=== PATIENT | male | born 1955 | race Caucasian/White ===

== ENCOUNTER → 2016-08-10 | Outpatient (REF) | payer MEDICARE, OTHER ==
[~2016-08-10] MED LIST: /AMLO25TA PO; /ATOR40TA PO; /HCTZ25TA PO; /MUPI30CR EXT; /ONDA4TA SL; /PANT40TA PO; /TAMS4CA PO; /WARF4TA PO; ACET50TA PO; ALBU2TA NEB; BLISOIN5 TOP; CEPALOZ2 MT; ENAL10TA2 PO; FERR32TA PO; LEXA5SOL PO; LOPR50TA PO; METF500T PO; MYSO50TA PO; NAPR500T PO; OCEA0.65; PACE200T PO; PERC2.5T PO; REGL10TA6 PO; [UNRECOGNIZED DRUG - OTHER] TOP
== END ==
LOC: M SFHCPLAZ 08:17
PROVIDERS: ATTEND Family Medicine
DX: Z00.00 Encounter for general adult medical examination without abnormal findings (principal); R73.01 Impaired fasting glucose

== ENCOUNTER → 2016-12-08 | Outpatient (REF) | payer MEDICARE, OTHER ==
[2016-12-08 13:20] LABS: MEAN CORPUSCULAR HGB CONC 33.5 g/dl (32.0-36.5); MEAN CORPUSCULAR VOLUME 92.6 fl (80.0-96.0); RED CELL DISTRIBUTION WIDTH 13.3 % (11.5-14.5); WHITE BLOOD COUNT 8.5 K/mm3 (4.0-10.0)
[2016-12-08 13:53] LABS: ALBUMIN 3.8 GM/DL (3.2-5.2); ALBUMIN/GLOBULIN RATIO 0.9 (1.00-1.93); BILIRUBIN,TOTAL 0.4 MG/DL (0.2-1.0); CALCIUM LEVEL 9.5 MG/DL (8.8-10.2); CREATININE FOR GFR 1.42 MG/DL (0.70-1.30); POTASSIUM SERUM 4.4 MEQ/L (3.5-5.1)
== END ==
LOC: M SFHCADAM 10:58
PROVIDERS: ATTEND Family Medicine
DX: G47.30 Sleep apnea, unspecified (principal); E78.00 Pure hypercholesterolemia, unspecified; I12.9 Hypertensive chronic kidney disease with stage 1 through stage 4 chronic kidney disease, or unspecified chronic kidney disease; N18.3 Chronic kidney disease, stage 3 (moderate); E11.9 Type 2 diabetes mellitus without complications

== ENCOUNTER → 2017-03-09 | Outpatient (REF) | payer MEDICARE, OTHER | LOC: M SFHCADAM 08:48 | PROVIDERS: ATTEND Family Medicine | DX: E11.9 Type 2 diabetes mellitus without complications (principal) ==

== ENCOUNTER → 2017-04-12 | Outpatient (REF) | payer MEDICARE, OTHER | LOC: M LAB REF 13:12 | PROVIDERS: ATTEND Internal Medicine Nephrology | DX: N18.3 Chronic kidney disease, stage 3 (moderate) (principal); N39.0 Urinary tract infection, site not specified ==

== ENCOUNTER → 2017-07-09 | Outpatient (REF) | payer MEDICARE, OTHER ==
[2017-07-09 12:38] LABS: ALBUMIN 3.8 GM/DL (3.2-5.2); ALKALINE PHOSPHATASE 57 U/L (45-117); ALT/SGPT 30 U/L (12-78); ANION GAP 9 MEQ/L (8-16); AST/SGOT 22 U/L (7-37); BILIRUBIN,TOTAL 0.6 MG/DL (0.2-1.0); BLOOD UREA NITROGEN 19 MG/DL (7-18); CALCIUM LEVEL 9.3 MG/DL (8.8-10.2); CARBON DIOXIDE LEVEL 26 MEQ/L (21-32); CHLORIDE LEVEL 106 MEQ/L (98-107); CHOLESTEROL LEVEL 143 MG/DL (<200); CHOLESTEROL RISK RATIO 3.325 (<5); CREATININE FOR GFR 1.34 MG/DL (0.70-1.30); GLOMERULAR FILTRATION RATE 57.5 (>49); GLUCOSE, FASTING 157 MG/DL (70-100); HDL CHOLESTEROL 43 MG/DL (>40); LDL CHOLESTEROL 68.6 MG/DL (<100); NON-HDL-C 100 MG/DL; POTASSIUM SERUM 4.7 MEQ/L (3.5-5.1); SODIUM LEVEL 141 MEQ/L (136-145); TOTAL PROTEIN 7.6 GM/DL (6.4-8.2); TRIGLYCERIDES LEVEL 157 MG/DL (<150)
[2017-07-09 12:47] LABS: ESTIMATED AVERAGE GLUCOSE 157 MG/DL (60-110); HEMOGLOBIN A1c 7.1 %
== END ==
LOC: M SFHCADAM 08:35
DX: E11.620 Type 2 diabetes mellitus with diabetic dermatitis (principal); Z68.35 Body mass index [BMI] 35.0-35.9, adult
CPT/HCPCS: 80053

== ENCOUNTER → 2017-08-10 | Outpatient (REF) | payer MEDICARE, OTHER | LOC: M LAB REF 13:09 | DX: N39.0 Urinary tract infection, site not specified (principal) | CPT/HCPCS: 87186 ==

== ENCOUNTER → 2018-01-25 | Outpatient (REF) | payer MEDICARE, OTHER ==
[2018-01-25 14:27] LABS: ESTIMATED AVERAGE GLUCOSE 151 MG/DL (60-110); HEMOGLOBIN A1c 6.9 %
== END ==
LOC: M SFHCADAM 08:22
DX: E11.9 Type 2 diabetes mellitus without complications (principal)
CPT/HCPCS: 83036

== ENCOUNTER → 2018-01-31 | Outpatient (REF) | payer MEDICARE, OTHER | LOC: M SFHCPLAZ 12:07 | DX: E11.9 Type 2 diabetes mellitus without complications (principal); R82.90 Unspecified abnormal findings in urine; Z93.6 Other artificial openings of urinary tract status | CPT/HCPCS: 87088; 87186 ==

== ENCOUNTER → 2018-05-16 | Outpatient (REF) | payer MEDICARE, OTHER ==
[2018-05-16 14:59] LABS: HEMOGLOBIN A1c 7.8 %
== END ==
LOC: M SFHCPLAZ 08:42
PROVIDERS: ATTEND Family Medicine
DX: E11.9 Type 2 diabetes mellitus without complications (principal)

== ENCOUNTER → 2018-08-03 | Outpatient (CLI) | payer MEDICARE, OTHER ==
[2018-08-03 13:50] LABS: HEMOGLOBIN A1c 7.5 %
== END ==
LOC: M WUC 09:22
PROVIDERS: ATTEND Family Medicine
DX: E11.9 Type 2 diabetes mellitus without complications (principal)

== ENCOUNTER → 2018-10-11 | Outpatient (REF) | payer MEDICARE, OTHER ==
[~2018-10-11] MED LIST changes: -/AMLO25TA PO; -/ATOR40TA PO; -/HCTZ25TA PO; -/MUPI30CR EXT; -/ONDA4TA SL; -/PANT40TA PO; -/TAMS4CA PO; -/WARF4TA PO; -ACET50TA PO; +BACT2CRE14 EXT; +COUM1TAB14 PO; +DAKI1SOL TOP; +FLOM0.4C39 PO; +HYDR-3644 PO; +LIPI1TAB2 PO; +MAPA500T17 PO; +NORV2TAB PO; +ONDA-1 SL; +PROT1TAB2 PO; -[UNRECOGNIZED DRUG - OTHER] TOP
== END ==
LOC: M LAB REF 12:12
PROVIDERS: ATTEND Physician Assistant Medical
DX: N39.0 Urinary tract infection, site not specified (principal)

== ENCOUNTER → 2019-01-13 | Outpatient (REF) | payer MEDICARE, OTHER | LOC: M LAB REF 12:40 | PROVIDERS: ATTEND Nurse Practitioner Family | DX: N39.0 Urinary tract infection, site not specified (principal) ==

== ENCOUNTER → 2019-07-15 | Outpatient (REF) | payer MEDICARE, OTHER | LOC: M LAB REF 10:42 | PROVIDERS: ATTEND Physician Assistant | DX: N39.0 Urinary tract infection, site not specified (principal) ==

== ENCOUNTER → 2019-07-18 | Outpatient (REF) | payer MEDICARE, OTHER ==
[2019-07-18 16:39] LABS: HEMOGLOBIN A1c 7.4 %
== END ==
LOC: M SFHCADAM 10:06
PROVIDERS: ATTEND Family Medicine
DX: E11.9 Type 2 diabetes mellitus without complications (principal)

== ENCOUNTER → 2019-09-19 | Outpatient (CLI) | payer MEDICARE, OTHER ==
--- NOTE | 2019-09-25 09:56 | SLEEPCENT ---
DATE OF PROCEDURE: 09/19/2019 INTERPRETATION: Nocturnal polysomnography was performed for the titration of pressure therapy in this patient with obstructive sleep apnea syndrome. Apnea-hypopnea index of 57. For testing the patient was fit with a ResMed AirFit F20 full face mask of medium size, 13 cm of water pressure were applied to the circuit and the lights were extinguished. 8 hours of data were reviewed. There were 336 minutes of sleep identified. Sleep latency was prolonged at 79 minutes. REM latency was normal at 97minutes. Sleep architecture was fair with two REM cycles noted. Overall sleep efficiency was 71.9%. The patient's electrocardiogram showed sinus rhythm with an average heart rate of 63 beats per minute. EEG showed normal waveforms for awake and sleep. Respiratory events were best palliated with CPAP at a pressure of +14 and remaining measures of sleep physiology were normal. IMPRESSION: Obstructive sleep apnea syndrome (G47.33) RECOMMENDATIONS: Nightly use of pressure therapy 14 cm of water.
== END ==
LOC: M SLEEP 20:00
PROVIDERS: ATTEND Nurse Practitioner Family
DX: G47.33 Obstructive sleep apnea (adult) (pediatric) (principal)

== ENCOUNTER → 2019-12-05 | Outpatient (REF) | payer MEDICARE, OTHER ==
[2019-12-05 13:35] LABS: ALBUMIN 3.7 GM/DL (3.2-5.2); BILIRUBIN,TOTAL 0.3 MG/DL (0.2-1.0); CALCIUM LEVEL 9.3 MG/DL (8.8-10.2); CHOLESTEROL RISK RATIO 2.871 (<5); CREATININE FOR GFR 1.45 MG/DL (0.70-1.30); GLOMERULAR FILTRATION RATE 52.2 (>49); HEMATOCRIT 41.5 % (42.0-52.0); HEMOGLOBIN 13.1 g/dl (13.5-17.5); MEAN CORPUSCULAR HGB CONC 31.6 g/dl (32.0-36.5); MEAN CORPUSCULAR VOLUME 95.2 fl (80.0-96.0); PLATELET COUNT, AUTOMATED 226 10^3/uL (150-450); POTASSIUM SERUM 4.8 MEQ/L (3.5-5.1); RED BLOOD COUNT 4.36 10^6/uL (4.30-6.10); TOTAL PROTEIN 7.2 GM/DL (6.4-8.2); WHITE BLOOD COUNT 8.2 10^3/uL (4.0-10.0)
[2019-12-05 13:51] LABS: HEMOGLOBIN A1c 6.3 %
[2019-12-05 14:09] LABS: CREATININE, URINE 92.3 MG/DL; MALB URINE SIEMENS 24.6 MG/L; MAU/CREAT RATIO 26.6 MCG/MG (0.0-30.0)
== END ==
LOC: M SFHCADAM 08:17
PROVIDERS: ATTEND Family Medicine
DX: G47.30 Sleep apnea, unspecified (principal); E11.9 Type 2 diabetes mellitus without complications; E78.00 Pure hypercholesterolemia, unspecified; I10 Essential (primary) hypertension

== ENCOUNTER → 2020-03-29 | Outpatient (REF) | payer MEDICARE, OTHER ==
[2020-03-29 13:54] LABS: HEMATOCRIT 41.5 % (42.0-52.0); HEMOGLOBIN 12.8 g/dl (13.5-17.5); MEAN CORPUSCULAR HEMOGLOBIN 29.3 pg (27.0-33.0); MEAN CORPUSCULAR HGB CONC 30.8 g/dl (32.0-36.5); PLATELET COUNT, AUTOMATED 271 10^3/uL (150-450); RED BLOOD COUNT 4.37 10^6/uL (4.30-6.10); WHITE BLOOD COUNT 10.2 10^3/uL (4.0-10.0)
[2020-03-29 14:14] LABS: HEMOGLOBIN A1c 6.2 %
[2020-03-29 14:21] LABS: ALBUMIN 3.7 GM/DL (3.2-5.2); CALCIUM LEVEL 9.5 MG/DL (8.8-10.2); CREATININE FOR GFR 1.38 MG/DL (0.70-1.30); GLOMERULAR FILTRATION RATE 55.2 (>49); POTASSIUM SERUM 4.7 MEQ/L (3.5-5.1)
== END ==
LOC: M SFHCADAM 08:28
PROVIDERS: ATTEND Family Medicine
DX: N18.2 Chronic kidney disease, stage 2 (mild) (principal); E11.21 Type 2 diabetes mellitus with diabetic nephropathy; D63.1 Anemia in chronic kidney disease

== ENCOUNTER → 2020-04-08 | Outpatient (REF) | payer MEDICARE, OTHER | LOC: M LAB REF 16:25 | PROVIDERS: ATTEND Physician Assistant | DX: N39.0 Urinary tract infection, site not specified (principal) ==

== ENCOUNTER 2020-05-06 14:45 | Inpatient (IN) | payer MEDICARE, OTHER ==
[~2020-05-06] VITALS: Ht 188 cm; Wt 112.6 kg
[2020-05-06] MEDS ORDERED: PENT400T22 PO (15:01)
[2020-05-06] MEDS ORDERED: LATA0.0015 OU (15:01)
[2020-05-06] MEDS ORDERED: TRUL10IN PO (15:01)
[2020-05-06] MEDS ORDERED: XARE20TA PO (15:01)
[2020-05-06] MEDS ORDERED: LISI10TA4 PO (15:01)
[2020-05-06] MEDS ORDERED: ROSU40TA4 PO (15:01)
[2020-05-06] MEDS ORDERED: METF10004 PO (15:01)
--- NOTE | 2020-05-06 16:32 | REP ---
INDICATION: swelling right testicle COMPARISON: None. TECHNIQUE: Myles scale and color Doppler evaluation using linear and curved array transducer with color Doppler evaluation. FINDINGS: Color evaluation cannot exclude subtle asymmetric (right greater than left) vascular perfusion to the testicles. Right hemiscrotum demonstrates large complex septated collection and differential diagnosis includes hydrocele related to infectious/inflammatory process as well as a hematocele related to recent trauma. Right testicle and epididymis appear relatively normal and there is no evidence for torsion. The left testicle and epididymis appear normal and without torsion or hydrocele. Right testicle measures 4.2 x 2.8 x 2.3 cm. Left testicle measures 4.7 x 2.2 x 2.4 cm. IMPRESSION: 1. Complex septated right hydrocele versus hematocele. Subtle asymmetric perfusion to testicles (right greater than left) cannot be excluded and raises the possibility of underlying right testicular infectious/inflammatory process. <Electronically signed by Jatinder Bergeron > 05/06/20 [id number]
[2020-05-06] MEDS ORDERED: NS 1,000 ML IV ONE (18:15)
[2020-05-06] MEDS ORDERED: ACETAMINOPHEN 500 MG TAB PO ONE (18:15)
[2020-05-06 19:12] LABS: BASO % 0.2 % (0.0-1.0); EOS % 0.1 % (0.0-3.0); HEMATOCRIT 40.1 % (42.0-52.0); HEMOGLOBIN 12.6 g/dl (13.5-17.5); LYMPH # 2.8 10^3/uL (1.5-5.0); LYMPH % 18.5 % (24.0-44.0); MEAN CORPUSCULAR HEMOGLOBIN 28.8 pg (27.0-33.0); MEAN CORPUSCULAR HGB CONC 31.4 g/dl (32.0-36.5); MEAN CORPUSCULAR VOLUME 91.6 fl (80.0-96.0); MONO # 1.6 10^3/uL (0.0-0.8); MONO % 10.9 % (0.0-5.0); NEUTROPHILS # 10.5 10^3/uL (1.5-8.5); NEUTROPHILS % 69.8 % (36.0-66.0); PLATELET COUNT, AUTOMATED 267 10^3/uL (150-450); RED BLOOD COUNT 4.38 10^6/uL (4.30-6.10)
[2020-05-06 19:33] LABS: ALBUMIN 3.5 GM/DL (3.2-5.2); BILIRUBIN,DIRECT 0.1 MG/DL (0.0-0.2); BILIRUBIN,TOTAL 0.4 MG/DL (0.2-1.0); CALCIUM LEVEL 9.3 MG/DL (8.8-10.2); CREATININE FOR GFR 1.46 MG/DL (0.70-1.30); GLOMERULAR FILTRATION RATE 51.6 (>49); TOTAL PROTEIN 7.6 GM/DL (6.4-8.2)
[2020-05-06] MEDS ORDERED: PIPERACILLIN/TAZOBACTAM SOD 3.375 GM in D5W MINI-BAG PLUS 50 ML IV ONE (20:15)
--- NOTE | 2020-05-06 20:42 | REPVR ---
PROCEDURE INFORMATION: Exam: XR Pelvis Exam date and time: 05/06/2020 8:15 PM Age: 65 years old Clinical indication: Pain; Scrotal; Additional info: Include pelvic/scrotum per urology Dr. Woodall TECHNIQUE: Imaging protocol: XR pelvis. Views: 1 or 2 view. COMPARISON: Scrotal, US 05/06/2020 4:07:03 PM FINDINGS: Bones/joints: The iliac crests were not fully imaged. No fracture or dislocation is identified. The hip joint spaces are preserved. No diastasis of the sacroiliac joints or pubic symphysis is noted. Soft tissues: No soft tissue gas is identified in the scrotum or perineal region. Vasculature: There are atherosclerotic calcifications. Incidental note is made of small round calcifications in the pelvis, which are compatible with phleboliths. IMPRESSION: No soft tissue gas identified in the scrotum or perineal region. Electronically signed by: Scooby Ragland On 05/06/2020 20:43:02 PM
[2020-05-06] MEDS ORDERED: SODIUM CHLORIDE 0.9% 1000ML IV STA (20:48)
[2020-05-06] MEDS ORDERED: ESCI10TA2 PO (20:56)
[2020-05-06] MEDS ORDERED: METO1TAB32 PO (20:56)
[2020-05-06] MEDS ORDERED: AMLO1TAB24 PO (20:56)
[2020-05-06] MEDS ORDERED: ACET-683 PO (20:56)
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
[2020-05-06] MEDS ORDERED: DEXTROSE 50% 50 ML SYRINGE IV PRN (21:00)
[2020-05-06] MEDS ORDERED: MAALOX 30 ML SUSP *UDC PO PRN (21:00)
[2020-05-06] MEDS ORDERED: MOM 30ML SUSPENSION UDC PO PRN (21:00)
[2020-05-06] MEDS ORDERED: GLUCAGON INJ 1MG VIAL SC PRN (21:00)
[2020-05-06] MEDS ORDERED: GLUCOSE 4GM CHEW TABLET PO PRN (21:00)
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
[2020-05-06 21:29] LABS: PERCENT SATURATION 6.2 % (19.7-50.0)
[2020-05-06] MEDS ORDERED: VANCOMYCIN HCL 1,000 MG, VIAL MATE ADAPTER 1 EACH in D5W 250 ML IV SCH (21:30)
[2020-05-06 21:37] LABS: FOLATE 9.2 NG/ML (>5.4)
[2020-05-06 21:59] LABS: CHLAMYDIA DNA AMPLIFICATION NEGATIVE (NEGATIVE); GC DNA AMPLIFICATION NEGATIVE (NEGATIVE)
[2020-05-07] MEDS ORDERED: METOPROLOL SUCC *XL* 25MG TAB (TopROL *XL*) PO ONE
[2020-05-07] MEDS: HumaLOG INSULIN (NovoLOG) PER UNIT SC SCH ×3 (00:01→12:50)
[2020-05-07] MEDS ORDERED: VANCOMYCIN HCL 1,000 MG, VIAL MATE ADAPTER 1 EACH in D5W 250 ML IV ONE ×4 (01:00)
[2020-05-07] MEDS: ROSUVASTATIN 10 MG TAB (CRESTOR) PO SCH ×2 (01:30→22:48)
[2020-05-07] MEDS: PENTOXIFYLLINE 400 MG TAB PO SCH ×4 (01:58→22:48)
[2020-05-07] MEDS: LATANOPROST 0.005% OPHTH SOLN 2.5 ML OU SCH ×2 (01:58→22:49)
[2020-05-07] MEDS: PIPERACILLIN/TAZOBACTAM SOD 4.5 GM in D5W MINI-BAG PLUS 50 ML IV SCH ×4 (03:03→22:47)
[2020-05-07] MEDS: NS 1,000 ML IV SCH ×3 (05:52→20:42)
[2020-05-07 07:40] LABS: HEMATOCRIT 33.8 % (42.0-52.0); HEMOGLOBIN 10.9 g/dl (13.5-17.5); MEAN CORPUSCULAR HEMOGLOBIN 30.2 pg (27.0-33.0); MEAN CORPUSCULAR HGB CONC 32.2 g/dl (32.0-36.5); MEAN CORPUSCULAR VOLUME 93.6 fl (80.0-96.0); PLATELET COUNT, AUTOMATED 218 10^3/uL (150-450); RED BLOOD COUNT 3.61 10^6/uL (4.30-6.10); WHITE BLOOD COUNT 12.6 10^3/uL (4.0-10.0)
[2020-05-07 08:00] VITALS: BP 99/64
[2020-05-07 08:06] LABS: BLOOD UREA NITROGEN 14 MG/DL (7-18); CALCIUM LEVEL 7.9 MG/DL (8.8-10.2); CARBON DIOXIDE LEVEL 25 MEQ/L (21-32); CHLORIDE LEVEL 112 MEQ/L (98-107); GLOMERULAR FILTRATION RATE > 60.0 (>49); GLUCOSE, FASTING 108 MG/DL (70-100); POTASSIUM SERUM 4.2 MEQ/L (3.5-5.1); SODIUM LEVEL 142 MEQ/L (136-145)
[2020-05-07] MEDS: METOPROLOL SUCC *XL* 25MG TAB (TopROL *XL*) PO SCH ×3 (09:00→22:48)
[2020-05-07] MEDS: lisinopriL 10 MG TAB PO SCH (09:00)
[2020-05-07] MEDS: amLODIPine 5 MG TAB PO SCH (09:00)
[2020-05-07] MEDS: RIVAROXABAN 20 MG TAB (XARELTO) PO SCH (09:10)
[2020-05-07] MEDS: ESCITALOPRAM OXALATE 10 MG TAB (LEXAPRO) PO SCH (09:10)
[2020-05-07] MEDS ORDERED: VANCOMYCIN HCL 750 MG, VIAL MATE ADAPTER 1 EACH in D5W 250 ML IV SCH (10:00)
[2020-05-07] MEDS ORDERED: VANCOMYCIN HCL 500 MG in D5W MINI-BAG PLUS 100 ML IV SCH (11:00)
[2020-05-07 12:00] VITALS: BP 107/65
[2020-05-07] MEDS ORDERED: GLUCOSE 4GM CHEW TABLET PO PRN (13:45)
[2020-05-07] MEDS ORDERED: DEXTROSE 50% 50 ML SYRINGE IV PRN (13:45)
[2020-05-07 14:00] VITALS: BP 111/69
--- NOTE | 2020-05-07 14:14 | IPNPDOC ---
Text Note Date of Service The patient was seen on 05/07/20. NOTE SUBJECTIVE: -No scrotal pain this morning. Reports that the swelling has improved -Afebrile OBJECTIVE: VITAL SIGNS: Please see below. GEN:obese, NAD HEENT: NCAT, sclera anicteric, EOMI, MMM CVS: RRR, NMRG LUNGS: CTAB ABDOMEN: Obese, soft & not tender with palpation EXTREMITIES: NCAT : moderate scrotal edema, has penile swelling, erythematous that he reports to be much improved. Nontender NEURO: CN 3-12 are grossly intact, speech is not dysarthric PSYCH: AOX3 LABORATORY DATA: Reviewed. IMAGING: Scrotal ultrasound "IMPRESSION: 1. Complex septated right hydrocele versus hematocele. Subtle asymmetric perfusion to testicles (right greater than left) cannot be excluded and raises the possibility of underlying right testicular infectious/inflammatory process." X-ray of the pelvis "IMPRESSION: No soft tissue gas identified in the scrotum or perineal region." MICROBIOLOGY: Please see below. ASSESSMENT: Mr. Marino is a 65-year-old with a history of NIDDM, penile urethrostomy, CKD 3, Hypertension, obesity, dyslipidemia, paroxysmal atrial fibrillation and essential tremor who presented with complaints of scrotal after blunt testicular trauma with suspected hematocele vs. unlikely necrotizing infection. PLAN: 1. +SIRS c/f sepsis SIRS criteria: Temp >101 / HR >90 / WBC >12 lactic acid <2 -continue Zosyn/IV fluids/f/u blood cx, UCx -Acetaminophen PRN for fever 2. Hydrocele versus hematocele. Likely a source of infection if present. -continue zosyn, day 2 -urology consulted doubt necrotizing infection -DC vanc 3. Asymptomatic UTI. -On zosyn 4. Chronic Normocytic normochromic anemia: He has had a resection of an adenomatous colonic polyp in the past -Follow-up iron studies, B12, folate, stool occult -will consider outpatient GI referral 5. NIDDM -consistent carb diet diet -f/u accuchecks & A1C -hypoglycemia protocol -sliding scale insulin -hold oral anti-glycemics 6. CKD 3 -f/u daily BMP 7.Chronic hypertension -Lisinopril, metoprolol, amlodipine 8. Obesity - JAM on 14 cm H2O on CPAP 9. Paroxysmal atrial fibrillation -c/w Xarelto / metoprolol 10. DPL -c/w rosuvastatin 11. Class 1 Obesity BMI of 31.3, complicates care He has coexisting hypertension, diabetes and JAM -patient can f/u w his or her PCP for a photographic machine operator consult, to discuss staring Saxenda which is indicated in patients with a BMI >27 with co-existing DM, HTN or dyslipidemia as an adjunct to help with weight control DVT PROPHYLAXIS: on xarelto DISPOSITION: medsurg blunt testicular trauma with suspected hematocele in an anticoagulated patient. Doubt necrotizing infection; Recent Klebsiella UTI; Complicated history of massive, catastrophic genital infection. Febrile P: Observe on broad spectrum IV antibiotics pending culture results. I will d/w Dr. Esquivel in the am who is coming on for urology. VS,Bhavanae, I+O VS, Heribertobone, I+O Laboratory Tests 05/06/20 18:02 05/06/20 18:46 05/07/20 07:11 Vital Signs Date Time Temp Pulse Resp B/P (MAP) Pulse Ox O2 Delivery O2 Flow Rate FiO2 05/07/20 12:00 97.8 69 22 107/65 (79) 94 05/06/20 18:01 Room Air I&O- Last 24 Hours up to 6 AM 05/07/20 06:00 Intake Total 4230 ml Balance 4230 ml SUSANNAH PAUL MD May 07, 2020 14:14
[2020-05-07 22:00] VITALS: BP 137/70
[2020-05-08] MEDS: NS 1,000 ML IV SCH (01:58)
[2020-05-08] MEDS: PIPERACILLIN/TAZOBACTAM SOD 4.5 GM in D5W MINI-BAG PLUS 50 ML IV SCH ×2 (01:58→10:10)
[2020-05-08 06:00] VITALS: BP 121/69
[2020-05-08] MEDS: ACETAMINOPHEN TAB 650MG DOSE (2X325MG) PO PRN ×2 (06:42→19:50)
[2020-05-08] MEDS: ESCITALOPRAM OXALATE 10 MG TAB (LEXAPRO) PO SCH ×2 (09:00→10:12)
[2020-05-08] MEDS: PENTOXIFYLLINE 400 MG TAB PO SCH ×3 (10:11→19:49)
[2020-05-08] MEDS: lisinopriL 10 MG TAB PO SCH (10:11)
[2020-05-08] MEDS: amLODIPine 5 MG TAB PO SCH (10:12)
[2020-05-08] MEDS: RIVAROXABAN 20 MG TAB (XARELTO) PO SCH (10:12)
[2020-05-08] MEDS: METOPROLOL SUCC *XL* 25MG TAB (TopROL *XL*) PO SCH ×3 (10:13→19:50)
--- NOTE | 2020-05-08 13:39 | IPNPDOC ---
Text Note Date of Service The patient was seen on 05/08/20. NOTE SUBJECTIVE: -No acute events overnight -had low grade temp to 100.1 OBJECTIVE: VITAL SIGNS: Please see below. GEN:obese, NAD HEENT: NCAT, sclera anicteric, EOMI, MMM CVS: RRR, NMRG LUNGS: CTAB ABDOMEN: Obese, soft & not tender with palpation EXTREMITIES: NCAT : moderate scrotal edema, with stable penile swelling and erythema, non tender NEURO: CN 3-12 are grossly intact, speech is not dysarthric PSYCH: AOX3 LABORATORY DATA: Reviewed. Pending AM labs IMAGING: Scrotal ultrasound "IMPRESSION: 1. Complex septated right hydrocele versus hematocele. Subtle asymmetric perfusion to testicles (right greater than left) cannot be excluded and raises the possibility of underlying right testicular infectious/inflammatory process." X-ray of the pelvis "IMPRESSION: No soft tissue gas identified in the scrotum or perineal region." MICROBIOLOGY: Please see below. ASSESSMENT: Mr. Marino is a 65-year-old with a history of NIDDM, penile urethrostomy, CKD 3, Hypertension, obesity, dyslipidemia, paroxysmal atrial fibrillation and essential tremor who presented with complaints of scrotal after blunt testicular trauma with suspected hematocele vs. unlikely necrotizing infection. PLAN: 1. +SIRS c/f sepsis SIRS criteria: Temp >101 / HR >90 / WBC >12 lactic acid <2 -continue Zosyn -f/u blood cx, UCx -Acetaminophen PRN for fever -stop IVF 2. Hydrocele versus hematocele. Likely a source of infection if present. -continue zosyn, day 3 -urology consulted doubt necrotizing infection -negative GCCT -f/u UCx and BCx 3. UTI. -On zosyn, day 3 4. Chronic Normocytic normochromic anemia: He has had a resection of an adenomatous colonic polyp in the past -Follow-up iron studies, B12, folate, stool occult -will consider outpatient GI referral 5. NIDDM -consistent carb diet diet -f/u accuchecks & A1C -hypoglycemia protocol -sliding scale insulin -hold oral anti-glycemics 6. CKD 3 -f/u daily BMP 7.Chronic hypertension -Lisinopril, metoprolol, amlodipine 8. Obesity - JAM on 14 cm H2O on CPAP 9. Paroxysmal atrial fibrillation -c/w Xarelto / metoprolol 10. DPL -c/w rosuvastatin 11. Class 1 Obesity BMI of 31.3, complicates care He has coexisting hypertension, diabetes and JAM -patient can f/u w his or her PCP for a ethylene plant operator consult, to discuss staring Saxenda which is indicated in patients with a BMI >27 with co-existing DM, HTN or dyslipidemia as an adjunct to help with weight control DVT PROPHYLAXIS: on xarelto DISPOSITION: medsurg VS,Fishbone, I+O VS, Fishbone, I+O Vital Signs Date Time Temp Pulse Resp B/P (MAP) Pulse Ox O2 Delivery O2 Flow Rate FiO2 05/08/20 06:00 97.9 62 17 121/69 (86) 99 Room Air I&O- Last 24 Hours up to 6 AM 05/08/20 06:00 Intake Total 2340 ml Output Total 3000 ml Balance -660 ml SUSANNAH PAUL MD May 08, 2020 09:12
[2020-05-08 14:00] VITALS: BP 110/64
[2020-05-08 14:19] LABS: HEMATOCRIT 35.4 % (42.0-52.0); MEAN CORPUSCULAR HEMOGLOBIN 28.8 pg (27.0-33.0); MEAN CORPUSCULAR HGB CONC 31.1 g/dl (32.0-36.5); MEAN CORPUSCULAR VOLUME 92.7 fl (80.0-96.0); PLATELET COUNT, AUTOMATED 240 10^3/uL (150-450); RED BLOOD COUNT 3.82 10^6/uL (4.30-6.10); WHITE BLOOD COUNT 8.3 10^3/uL (4.0-10.0)
[2020-05-08 14:46] LABS: BLOOD UREA NITROGEN 10 MG/DL (7-18); CALCIUM LEVEL 8.7 MG/DL (8.8-10.2); CARBON DIOXIDE LEVEL 26 MEQ/L (21-32); CHLORIDE LEVEL 114 MEQ/L (98-107); CREATININE FOR GFR 1.12 MG/DL (0.70-1.30); GLOMERULAR FILTRATION RATE > 60.0 (>49); GLUCOSE, FASTING 143 MG/DL (70-100); SODIUM LEVEL 144 MEQ/L (136-145)
[2020-05-08] MEDS: CEPHALEXIN 500 MG CAP PO SCH ×2 (17:45→23:29)
[2020-05-08] MEDS: ROSUVASTATIN 10 MG TAB (CRESTOR) PO SCH (19:49)
[2020-05-08] MEDS: LATANOPROST 0.005% OPHTH SOLN 2.5 ML OU SCH (19:50)
[2020-05-08 22:00] VITALS: BP 119/72
[2020-05-09 02:00] VITALS: BP 122/68
[2020-05-09] MEDS: CEPHALEXIN 500 MG CAP PO SCH (05:53)
[2020-05-09 06:00] VITALS: BP 119/66
[2020-05-09 07:06] LABS: HEMATOCRIT 36.5 % (42.0-52.0); HEMOGLOBIN 11.2 g/dl (13.5-17.5); MEAN CORPUSCULAR HEMOGLOBIN 28.5 pg (27.0-33.0); MEAN CORPUSCULAR HGB CONC 30.7 g/dl (32.0-36.5); MEAN CORPUSCULAR VOLUME 92.9 fl (80.0-96.0); PLATELET COUNT, AUTOMATED 271 10^3/uL (150-450); RED BLOOD COUNT 3.93 10^6/uL (4.30-6.10); WHITE BLOOD COUNT 8.6 10^3/uL (4.0-10.0)
[2020-05-09 07:28] LABS: BLOOD UREA NITROGEN 12 MG/DL (7-18); CALCIUM LEVEL 8.9 MG/DL (8.8-10.2); CARBON DIOXIDE LEVEL 27 MEQ/L (21-32); CHLORIDE LEVEL 111 MEQ/L (98-107); CREATININE FOR GFR 1.14 MG/DL (0.70-1.30); GLOMERULAR FILTRATION RATE > 60.0 (>49); GLUCOSE, FASTING 112 MG/DL (70-100); SODIUM LEVEL 141 MEQ/L (136-145)
[2020-05-09] MEDS: RIVAROXABAN 20 MG TAB (XARELTO) PO SCH (08:39)
[2020-05-09] MEDS: PENTOXIFYLLINE 400 MG TAB PO SCH (08:39)
[2020-05-09] MEDS: amLODIPine 5 MG TAB PO SCH (08:40)
[2020-05-09] MEDS: METOPROLOL SUCC *XL* 25MG TAB (TopROL *XL*) PO SCH (08:42)
[2020-05-09 08:43] VITALS: BP 123/69
[2020-05-09] MEDS: ESCITALOPRAM OXALATE 10 MG TAB (LEXAPRO) PO SCH (08:43)
[2020-05-09] MEDS: lisinopriL 10 MG TAB PO SCH (08:43)
[2020-05-09] MEDS ORDERED: CEPH500C PO (08:44)
--- NOTE | 2020-05-09 11:37 | DS.PDOC ---
Discharge Summary General Date of Admission May 06, 2020 at 20:48 Date of Discharge 05/09/2020 Attending Physician: SUSANNAH PAUL MD Discharge Summary PROCEDURES PERFORMED DURING STAY: None ADMITTING DIAGNOSES: 1. UTI 2. 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 NIDDM CKD 3 Chronic hypertension Obesity JAM on 14 cm H2O Dyslipidemia Paroxysmal atrial fibrillation on Xarelto Essential tremor GERD Hernia repair Bilateral carpal tunnel surgery COMPLICATIONS/CHIEF COMPLAINT: Hematocele/Sepsis. HISTORY OF PRESENT ILLNESS: 65-year-old gentleman who presented with complaints of 3 days of scrotal and testicular pain that occurred after he slipped on ice while cleaning his car, fell into a splits position and struck his testicle on a tire. The last couple of days the pain and swelling became worse, therefore he decided to come to the hospital for evaluation. He reports having fevers but denies having any chills. Scrotal ultrasound identified a fluid collection that may be due to to a hydrocele or hematocele; he was evaluated by Dr. Woodall who recommended antibiotics. HOSPITAL COURSE: He met SIRS criteria in the ED and he was empirically started on antibiotics and UA was positive and UCx sent. He was seen by urology that recommended medical management with antibiotics and UCx eventually grew pansensitve E.coli and he was switched to keflex. He is now being disharged home to complete a 7d course of keflex with urology and PCP follow up. DISCHARGE MEDICATIONS: Please see below. ALLERGIES: Please see below. PHYSICAL EXAMINATION ON DISCHARGE: VITAL SIGNS: Please see below. GEN:obese, NAD HEENT: NCAT, sclera anicteric, EOMI, MMM CVS: RRR, NMRG LUNGS: CTAB ABDOMEN: Obese, soft & not tender with palpation EXTREMITIES: NCAT : much improved scrotal edema, without erythema, non tender NEURO: CN 3-12 are grossly intact, speech is not dysarthric PSYCH: AOX3 LABORATORY DATA: Reviewed. Pending AM labs IMAGING: Scrotal ultrasound "IMPRESSION: 1. Complex septated right hydrocele versus hematocele. Subtle asymmetric perfusion to testicles (right greater than left) cannot be excluded and raises the possibility of underlying right testicular infectious/inflammatory process." X-ray of the pelvis "IMPRESSION: No soft tissue gas identified in the scrotum or perineal region." PROGNOSIS: Good ACTIVITY: As tolerated. DIET: consistent carb DISCHARGE PLAN: Home with keflex, 7d course, urology and PCP follow up DISPOSITION: Home DISCHARGE INSTRUCTIONS: 1. Home with keflex, 7d course, urology and PCP follow up ITEMS TO FOLLOWUP ON ON OUTPATIENT: 1. UTI and hematocele resolution DISCHARGE CONDITION: Stable TIME SPENT ON DISCHARGE: 34 minutes. Vital Signs/I&Os Vital Signs Date Time Temp Pulse Resp B/P (MAP) Pulse Ox O2 Delivery O2 Flow Rate FiO2 05/09/20 06:00 98.0 58 18 119/66 (83) 98 Room Air I&O- Last 24 Hours up to 6 AM 05/09/20 06:00 Intake Total 2550 ml Output Total 3000 ml Balance -450 ml Laboratory Data Labs 24H Laboratory Tests 2 05/08/20 12:28: Bedside Glucose (Misc Panel) 97 05/08/20 14:00: Nucleated Red Blood Cells % (auto) 0.0, Anion Gap 4L, Glomerular Filtration Rate > 60.0, Calcium Level 8.7L 05/08/20 16:32: Bedside Glucose (Misc Panel) 146H 05/08/20 21:07: Bedside Glucose (Misc Panel) 172H 05/09/20 06:50: Nucleated Red Blood Cells % (auto) 0.0, Anion Gap 3L, Glomerular Filtration Rate > 60.0, Calcium Level 8.9 CBC/BMP Laboratory Tests 05/08/20 14:00 05/09/20 06:50 FSBS Laboratory Tests Test 05/08/20 12:28 05/08/20 16:32 05/08/20 21:07 Range/Units Bedside Glucose (Misc Panel) 97 146 172 80-115 MG/DL Microbiology Microbiology 05/06/20 Urine Culture - Final, Complete Escherichia Coli 05/06/20 Blood Culture - Preliminary, Resulted No Growth after 48 hours. All Specime... 05/06/20 Blood Culture - Preliminary, Resulted No Growth after 48 hours. All Specime... Discharge Medications Scheduled Amlodipine Besylate (Amlodipine Besylate) 5 Mg Tablet, 5 MG PO DAILY, (Reported) Cephalexin (Cephalexin) 500 Mg Capsule, 500 MG PO Q6H Dulaglutide (Trulicity) 0.75 Mg/0.5 Ml Pen.injctr, 0.75 MG PO 1XWK, (Reported) ON TUESDAYS Escitalopram Oxalate (Escitalopram Oxalate) 10 Mg Tablet, 10 MG PO DAILY, (Reported) Latanoprost/Pf (Latanoprost 0.005% Eye Drop) 7.5 Ml Drops, 1 DROP OU QHS, (Reported) Lisinopril (Lisinopril) 10 Mg Tablet, 10 MG PO DAILY, (Reported) Metformin HCl (Metformin HCl) 1,000 Mg Tablet, 1,000 MG PO BID, (Reported) Metoprolol Succinate (Metoprolol Succinate) 25 Mg Tab.er.24h, 25 MG PO TID, (Reported) Pentoxifylline (Pentoxifylline) 400 Mg Tablet.er, 400 MG PO TID, (Reported) Rivaroxaban (Xarelto) 20 Mg Tablet, 20 MG PO DAILY, (Reported) Rosuvastatin Calcium (Rosuvastatin Calcium) 40 Mg Tablet, 40 MG PO QHS, (Reported) Scheduled PRN Acetaminophen (Acetaminophen) 500 Mg Tablet, 1,000 MG PO Q8H PRN for PAIN / FEVER, (Reported) Allergies Coded Allergies: No Known Allergies (Unverified , 05/06/20) SUSANNAH PAUL MD May 09, 2020 08:42
== END 2020-05-09 11:50 | disposition home or self-care (01) | DRG 872 ==
LOC: M ED 14:45 → M ED INP 20:48 → M MS5PR 05-07 13:15
PROVIDERS: ADMIT Internal Medicine; ATTEND Internal Medicine
DX: A41.9 Sepsis, unspecified organism (principal); N39.0 Urinary tract infection, site not specified; E11.22 Type 2 diabetes mellitus with diabetic chronic kidney disease; N18.30 Chronic kidney disease, stage 3 unspecified; I12.9 Hypertensive chronic kidney disease with stage 1 through stage 4 chronic kidney disease, or unspecified chronic kidney disease; E66.9 Obesity, unspecified; G47.33 Obstructive sleep apnea (adult) (pediatric); E78.5 Hyperlipidemia, unspecified; I48.0 Paroxysmal atrial fibrillation; G25.0 Essential tremor; N50.1 Vascular disorders of male genital organs; S30.22XA Contusion of scrotum and testes, initial encounter; K21.9 Gastro-esophageal reflux disease without esophagitis; D64.9 Anemia, unspecified; Z68.31 Body mass index [BMI] 31.0-31.9, adult; Z87.891 Personal history of nicotine dependence; Z93.6 Other artificial openings of urinary tract status; Z90.79 Acquired absence of other genital organ(s); Z79.1 Long term (current) use of non-steroidal anti-inflammatories (NSAID); Z79.84 Long term (current) use of oral hypoglycemic drugs; Z20.828 Contact with and (suspected) exposure to other viral communicable diseases; B96.20 Unspecified Escherichia coli [E. coli] as the cause of diseases classified elsewhere; W00.0XXA Fall on same level due to ice and snow, initial encounter; Y93.89 Activity, other specified; Y92.008 Other place in unspecified non-institutional (private) residence as the place of occurrence of the external cause

== ENCOUNTER → 2020-06-11 | Outpatient (REF) | payer MEDICARE, OTHER ==
[~2020-06-11] MED LIST changes: +ACET-683 PO; +AMLO1TAB24 PO; +CEPH500C PO; +ESCI10TA16 PO; +LATA0.0015 OU; +LISI10TA4 PO; +METF10004 PO; +METO1TAB32 PO; +PENT400T22 PO; +ROSU40TA4 PO; +TRUL10IN PO; +XARE20TA PO
== END ==
LOC: M SMT 11:53
PROVIDERS: ATTEND Urology
DX: N45.1 Epididymitis (principal)
CPT/HCPCS: 87086; G0463

== ENCOUNTER → 2020-06-13 | Outpatient (CLI) | payer MEDICARE, OTHER ==
--- NOTE | 2020-06-13 12:24 | REP ---
INDICATION: EPIDIDYMITIS. Patient reports left testicular pain today. COMPARISON: Comparison study May 06, 2020.. TECHNIQUE: High-resolution bilateral scrotal sonography. FINDINGS: On today's study, there is a septated complex hydrocele on the left side and the previously noted right-sided septated hydrocele is no longer apparent. There is no evidence of intratesticular mass on either side. Right testis measures 4.0 x 1.8 x 2.6 cm. Left testicular dimensions are 3.8 x 2.3 x 2.7 cm. Doppler flow is preserved to both testes. Resistive indices are 0.52 on the left and 0.63 on the right. There is hyperemia of the left testis and left epididymis consistent with epididymal orchitis. IMPRESSION: Left testicular and left epididymal hyperemia relative to the right. Complex hydrocele with septations has now developed on the left. Previously noted right-sided hydrocele is resolved. Left-sided epididymal orchitis suspected. <Electronically signed by Juan Miguel Oropeza > 06/13/20 [id number]
== END ==
LOC: M RAD 10:44
PROVIDERS: ATTEND Urology
DX: N45.1 Epididymitis (principal); N40.2 Nodular prostate without lower urinary tract symptoms
CPT/HCPCS: 36415; 76870; 93976; G0103

== ENCOUNTER → 2020-11-04 | Outpatient (CLI) | payer MEDICARE, OTHER ==
[~2020-11-04] MED LIST changes: +LISI10TA22 PO; -LISI10TA4 PO
--- NOTE | 2020-11-04 16:56 | REP ---
INDICATION: EPIDIDYMITIS. COMPARISON: 06/13/2020. TECHNIQUE: Real-time sonographic evaluation of scrotum and contents performed. FINDINGS: The testicles are normal in size and echotexture, right testicle measuring 2.6 x 2.3 x 2.6 cm and left testicle 3.6 x 1.9 x 1.9 cm. There is no testicular mass or torsion. Blood flow seen in each testicle with duplex Doppler evaluation. Complex fluid with debris and internal septations is noted around the right testicle. This is moderate in size. Previously noted left hydrocele has resolved. IMPRESSION: No testicular mass or torsion. Moderate complex right hydrocele. Resolution of left hydrocele. <Electronically signed by Demetrio Myles > 11/04/20 [id number]
== END ==
LOC: M RAD 15:43
PROVIDERS: ATTEND Specialist
DX: N43.3 Hydrocele, unspecified (principal); N45.1 Epididymitis

== ENCOUNTER → 2020-11-12 | Outpatient (CLI) | payer MEDICARE, OTHER ==
[2020-11-12 11:01] LABS: HEMOGLOBIN A1c 6.5 %
[2020-11-12 11:17] LABS: ALBUMIN 3.7 GM/DL (3.2-5.2); ALT/SGPT 18 U/L (12-78); BILIRUBIN,TOTAL 0.4 MG/DL (0.2-1.0); BLOOD UREA NITROGEN 24 MG/DL (7-18); CALCIUM LEVEL 8.8 MG/DL (8.8-10.2); CARBON DIOXIDE LEVEL 26 MEQ/L (21-32); CHLORIDE LEVEL 106 MEQ/L (98-107); CHOLESTEROL LEVEL 107 MG/DL (<200); CHOLESTEROL RISK RATIO 2.431 (<5); CREATININE FOR GFR 1.27 MG/DL (0.70-1.30); GLOMERULAR FILTRATION RATE > 60.0 (>49); GLUCOSE, FASTING 129 MG/DL (70-100); HDL CHOLESTEROL 44 MG/DL (>40); LDL CHOLESTEROL 47 MG/DL (<100); NON-HDL-C 63 MG/DL; SODIUM LEVEL 137 MEQ/L (136-145); TOTAL PROTEIN 7.1 GM/DL (6.4-8.2); TRIGLYCERIDES LEVEL 82 MG/DL (<150)
[2020-11-12 11:20] LABS: CREATININE, URINE 72.5 MG/DL; MALB URINE SIEMENS 27.3 MG/L; MAU/CREAT RATIO 37.6 MCG/MG (0.0-30.0)
== END ==
LOC: M PLALAB 07:46
PROVIDERS: ATTEND Family Medicine
DX: E11.21 Type 2 diabetes mellitus with diabetic nephropathy (principal); N18.31 Chronic kidney disease, stage 3a; I12.9 Hypertensive chronic kidney disease with stage 1 through stage 4 chronic kidney disease, or unspecified chronic kidney disease; E78.00 Pure hypercholesterolemia, unspecified

== ENCOUNTER → 2020-11-23 | Outpatient (CLI) | payer MEDICARE, OTHER | LOC: M LABSMTC 10:36 | PROVIDERS: ATTEND Anesthesiology | DX: Z01.812 Encounter for preprocedural laboratory examination (principal) ==

== ENCOUNTER 2020-11-28 10:41 | Day surgery (SDC) | payer MEDICARE, OTHER ==
[~2020-11-28] VITALS: Ht 188 cm; Wt 111.6 kg
[~2020-11-28 10:41] MED LIST changes: +NS 1,000 ML IV ONE
[2020-11-28] MEDS ORDERED: propofoL 200 MG/20 ML VIAL As Ordered ONE (11:51)
[2020-11-28] MEDS ORDERED: LIDOCAINE 2% 100MG/5ML SDV (FOR ANES.) As Ordered ONE (11:51)
--- NOTE | 2020-11-28 12:32 | ROOR ---
Patient Name: Nakul Marino Procedure Date: 11/28/2020 11:58 AM Date of : 1955 Age: 65 Room: [facility] Gender: Male Note Status: Finalized Procedure: Colonoscopy Indications: High risk colon cancer surveillance: Personal history of colonic polyps Providers: Ruddy Kincaid Jr, MD Referring MD: YENI HDZ MD Requesting Provider: Medicines: Propofol per Anesthesia Complications: No immediate complications. Procedure: Pre-Anesthesia Assessment: - Prior to the procedure, a History and Physical was performed, and patient medications and allergies were reviewed. The patient is competent. The risks and benefits of the procedure and the sedation options and risks were discussed with the patient. All questions were answered and informed consent was obtained. Patient identification and proposed procedure were verified by the physician and the nurse in the pre-procedure area and in the procedure room. Mental Status Examination: alert and oriented. Airway Examination: normal oropharyngeal airway and neck mobility. Respiratory Examination: clear to auscultation. CV Examination: normal. ASA Grade Assessment: II - A patient with mild systemic disease. After reviewing the risks and benefits, the patient was deemed in satisfactory condition to undergo the procedure. The anesthesia plan was to use moderate sedation / analgesia (conscious sedation). Immediately prior to administration of medications, the patient was re-assessed for adequacy to receive sedatives. The heart rate, respiratory rate, oxygen saturations, blood pressure, adequacy of pulmonary ventilation, and response to care were monitored throughout the procedure. The physical status of the patient was re-assessed after the procedure. The Colonoscope was introduced through the anus and advanced to the cecum, identified by appendiceal orifice and ileocecal valve. The colonoscopy was performed without difficulty. The patient tolerated the procedure well. The quality of the bowel preparation was poor. Findings: The descending colon, transverse colon, cecum, appendiceal orifice and ileocecal valve appeared normal. Multiple small and large-mouthed diverticula were found in the sigmoid colon. Four polyps were found in the rectum, recto-sigmoid colon and sigmoid colon. These polyps were removed with a jumbo cold forceps. Resection was complete, but the polyp tissue was only partially retrieved. A small polyp was found in the ascending colon. The polyp was removed with a cold snare. Resection and retrieval were complete. Impression: - Preparation of the colon was poor. - The descending colon, transverse colon, cecum, appendiceal orifice and ileocecal valve are normal. - Diverticulosis in the sigmoid colon. - Four polyps in the rectum, at the recto-sigmoid colon and in the sigmoid colon, removed with a jumbo cold forceps. Complete resection. Partial retrieval. - One small polyp in the ascending colon, removed with a cold snare. Resected and retrieved. Recommendation: - Repeat colonoscopy in 5 years for surveillance. Procedure Code(s): --- Professional --- 56551, Colonoscopy, flexible; with removal of tumor(s), polyp(s), or other lesion(s) by snare technique 41699, 59, Colonoscopy, flexible; with biopsy, single or multiple Diagnosis Code(s): --- Professional --- Z86.010, Personal history of colonic polyps K62.1, Rectal polyp K63.5, Polyp of colon K57.30, Diverticulosis of large intestine without perforation or abscess without bleeding CPT copyright 2019 [employer]. All rights reserved. The codes documented in this report are preliminary and upon umbrella finisher review may be revised to meet current compliance requirements. Ruddy Kincaid MD Ruddy Kincaid Jr, MD 11/28/2020 12:31:49 PM Electronically signed by Ruddy Kincaid Jr, MD Number of Addenda: 0 Note Initiated On: 11/28/2020 11:58 AM Estimated Blood Loss: Estimated blood loss: none.
[2020-11-28 12:45] VITALS: BP 117/72
== END 2020-11-28 12:55 | disposition home or self-care (01) ==
LOC: M OPP 10:41
PROVIDERS: ATTEND Surgery
DX: Z12.11 Encounter for screening for malignant neoplasm of colon (principal); Z86.010 Personal history of colon polyps; D12.6 Benign neoplasm of colon, unspecified; K62.1 Rectal polyp; K57.30 Diverticulosis of large intestine without perforation or abscess without bleeding; I48.91 Unspecified atrial fibrillation; E11.9 Type 2 diabetes mellitus without complications; G47.30 Sleep apnea, unspecified; Z79.84 Long term (current) use of oral hypoglycemic drugs; Z79.899 Other long term (current) drug therapy; Z86.718 Personal history of other venous thrombosis and embolism

== ENCOUNTER → 2021-02-26 | Outpatient (REF) | payer MEDICARE, OTHER ==
[~2021-02-26] MED LIST changes: -NS 1,000 ML IV ONE
== END ==
LOC: M LAB REF 13:08
PROVIDERS: ATTEND Internal Medicine Nephrology
DX: N18.31 Chronic kidney disease, stage 3a (principal)

== ENCOUNTER → 2021-06-18 | Outpatient (REF) | LOC: M LAB 11:06 | PROVIDERS: ATTEND Nurse Practitioner Adult Health | DX: Z02.1 Encounter for pre-employment examination (principal) ==

== ENCOUNTER → 2021-09-18 | Outpatient (CLI) | payer MEDICARE, OTHER ==
[2021-09-18 13:42] LABS: HEMATOCRIT 39.2 % (42.0-52.0); HEMOGLOBIN 12.6 g/dl (13.5-17.5); MEAN CORPUSCULAR HEMOGLOBIN 30.5 pg (27.0-33.0); MEAN CORPUSCULAR HGB CONC 32.1 g/dl (32.0-36.5); MEAN CORPUSCULAR VOLUME 94.9 fl (80.0-96.0); PLATELET COUNT, AUTOMATED 256 10^3/uL (150-450); RED BLOOD COUNT 4.13 10^6/uL (4.30-6.10); WHITE BLOOD COUNT 7.6 10^3/uL (4.0-10.0)
[2021-09-18 13:59] LABS: ALBUMIN 3.6 GM/DL (3.2-5.2); ALT/SGPT 19 U/L (12-78); BILIRUBIN,TOTAL 0.4 MG/DL (0.2-1.0); BLOOD UREA NITROGEN 22 MG/DL (7-18); CALCIUM LEVEL 10.1 MG/DL (8.8-10.2); CARBON DIOXIDE LEVEL 28 MEQ/L (21-32); CHLORIDE LEVEL 110 MEQ/L (98-107); CHOLESTEROL LEVEL 107 MG/DL (<200); CHOLESTEROL RISK RATIO 2.377 (<5); CREATININE FOR GFR 1.13 MG/DL (0.70-1.30); GLOMERULAR FILTRATION RATE > 60.0 (>49); GLUCOSE, FASTING 114 MG/DL (70-100); HDL CHOLESTEROL 45 MG/DL (>40); LDL CHOLESTEROL 47 MG/DL (<100); NON-HDL-C 62 MG/DL; POTASSIUM SERUM 5.2 MEQ/L (3.5-5.1); SODIUM LEVEL 142 MEQ/L (136-145); TOTAL PROTEIN 7.1 GM/DL (6.4-8.2); TRIGLYCERIDES LEVEL 76 MG/DL (<150)
[2021-09-18 16:22] LABS: HEMOGLOBIN A1c 6.3 %
== END ==
LOC: M PLALAB 10:00
PROVIDERS: ATTEND Family Medicine
DX: E11.21 Type 2 diabetes mellitus with diabetic nephropathy (principal); N18.31 Chronic kidney disease, stage 3a; I12.9 Hypertensive chronic kidney disease with stage 1 through stage 4 chronic kidney disease, or unspecified chronic kidney disease; E78.00 Pure hypercholesterolemia, unspecified

== ENCOUNTER → 2021-10-02 | Outpatient (REF) | payer MEDICARE, OTHER ==
[2021-10-03 11:18] LABS: CREATININE, URINE 17.5 MG/DL; MAU/CREAT RATIO 51.4 MCG/MG (0.0-30.0)
== END ==
LOC: M SFHCPLAZ 10:09
PROVIDERS: ATTEND Family Medicine
DX: R30.0 Dysuria (principal); E87.5 Hyperkalemia; E11.9 Type 2 diabetes mellitus without complications

== ENCOUNTER → 2021-12-02 | Outpatient (CLI) | payer MEDICARE, OTHER | LOC: M RAD 08:05 | PROVIDERS: ATTEND Family Medicine | DX: Z13.6 Encounter for screening for cardiovascular disorders (principal); I77.819 Aortic ectasia, unspecified site ==

== ENCOUNTER → 2022-01-02 | Outpatient (REF) | payer MEDICARE, OTHER | LOC: M SFHCPLAZ 16:46 | PROVIDERS: ATTEND Physician Assistant | DX: R30.0 Dysuria (principal) ==

== ENCOUNTER → 2022-03-03 | Outpatient (CLI) | payer MEDICARE, OTHER ==
[2022-03-03 11:41] LABS: HEMOGLOBIN A1c 6.3 %
[2022-03-03 12:05] LABS: ALBUMIN 3.3 GM/DL (3.2-5.2); CREATININE FOR GFR 1.42 MG/DL (0.70-1.30); GLOMERULAR FILTRATION RATE 53.1 (>49); PHOSPHORUS LEVEL 2.4 MG/DL (2.5-4.9); POTASSIUM SERUM 4.5 MEQ/L (3.5-5.1)
[2022-03-03 12:13] LABS: MALB URINE SIEMENS 17.9 MG/L; MAU/CREAT RATIO 13.7 MCG/MG (0.0-30.0)
== END ==
LOC: M PLALAB 08:07
PROVIDERS: ATTEND Family Medicine
DX: E87.5 Hyperkalemia (principal)

== ENCOUNTER → 2022-09-03 | Outpatient (CLI) | payer MEDICARE, OTHER ==
[2022-09-03 11:33] LABS: HEMATOCRIT 39.2 % (42.0-52.0); HEMOGLOBIN 12.5 g/dl (13.5-17.5); MEAN CORPUSCULAR HEMOGLOBIN 31.1 pg (27.0-33.0); MEAN CORPUSCULAR HGB CONC 31.9 g/dl (32.0-36.5); MEAN CORPUSCULAR VOLUME 97.5 fl (80.0-96.0); PLATELET COUNT, AUTOMATED 221 10^3/uL (150-450); RED BLOOD COUNT 4.02 10^6/uL (4.30-6.10); WHITE BLOOD COUNT 8.2 10^3/uL (4.0-10.0)
[2022-09-03 11:40] LABS: ALBUMIN 3.6 G/DL (3.2-5.2); ALKALINE PHOSPHATASE 47 U/L (46-116); ALT/SGPT 16 U/L (7.0-40); AST/SGOT 15 U/L (<34); BILIRUBIN,TOTAL 0.3 MG/DL (0.3-1.2); BLOOD UREA NITROGEN 20 MG/DL (9-23); CALCIUM LEVEL 9.3 MG/DL (8.3-10.6); CARBON DIOXIDE LEVEL 28 MMOL/L (20-31); CHLORIDE LEVEL 106 MMOL/L (98-107); CHOLESTEROL LEVEL 92 MG/DL (<200); GLOMERULAR FILTRATION RATE > 60.0 (>49); GLUCOSE, FASTING 113 MG/DL (74-106); HDL CHOLESTEROL 48.3 MG/DL (>40); LDL CHOLESTEROL 32.9 MG/DL (<100); NON-HDL-C 43.7 MG/DL; POTASSIUM SERUM 4.4 MMOL/L (3.5-5.1); SODIUM LEVEL 138 MMOL/L (136-145); TRIGLYCERIDES LEVEL 54 MG/DL (<150)
[2022-09-03 12:42] LABS: HEMOGLOBIN A1c 6.2 % (4.0-6.0)
== END ==
LOC: M WUC 08:04
PROVIDERS: ATTEND Family Medicine
DX: R30.0 Dysuria (principal); E11.9 Type 2 diabetes mellitus without complications; N18.31 Chronic kidney disease, stage 3a; E78.00 Pure hypercholesterolemia, unspecified

== ENCOUNTER → 2022-09-15 | Outpatient (REF) | LOC: M EMP 08:13 | PROVIDERS: ATTEND Family Medicine | DX: Z11.52 Encounter for screening for COVID-19 (principal) ==

== ENCOUNTER 2022-09-21 00:14 | Emergency (ER) | payer MEDICARE, OTHER ==
[~2022-09-21] VITALS: Ht 188 cm; Wt 111.1 kg
[2022-09-21 05:33] LABS: BASO % 0.4 % (0.0-1.0); EOS # 0.1 10^3/uL (0.0-0.5); EOS % 0.6 % (0.0-3.0); HEMATOCRIT 39.9 % (42.0-52.0); HEMOGLOBIN 13.2 g/dl (13.5-17.5); LYMPH # 3.2 10^3/uL (1.5-5.0); LYMPH % 39.4 % (24.0-44.0); MEAN CORPUSCULAR HEMOGLOBIN 30.6 pg (27.0-33.0); MEAN CORPUSCULAR HGB CONC 33.1 g/dl (32.0-36.5); MEAN CORPUSCULAR VOLUME 92.4 fl (80.0-96.0); MONO # 0.9 10^3/uL (0.0-0.8); MONO % 10.8 % (2.0-8.0); NEUTROPHILS % 48.4 % (36.0-66.0); PLATELET COUNT, AUTOMATED 231 10^3/uL (150-450); RED BLOOD COUNT 4.32 10^6/uL (4.30-6.10); WHITE BLOOD COUNT 8.2 10^3/uL (4.0-10.0)
[2022-09-21 06:03] LABS: ALBUMIN 4.4 G/DL (3.2-5.2); ALKALINE PHOSPHATASE 55 U/L (46-116); ALT/SGPT 19 U/L (7.0-40); AST/SGOT 18 U/L (<34); BILIRUBIN,DIRECT 0.2 MG/DL (<0.4); BILIRUBIN,TOTAL 0.4 MG/DL (0.3-1.2); BLOOD UREA NITROGEN 34 MG/DL (9-23); CALCIUM LEVEL 9.8 MG/DL (8.3-10.6); CARBON DIOXIDE LEVEL 24 MMOL/L (20-31); CHLORIDE LEVEL 106 MMOL/L (98-107); CK-MB VALUE MASS 8.8 NG/ML (<3.6); CPK CREATINE PHOSPHOKINASE 114 U/L (46-171); CREATININE FOR GFR 1.33 MG/DL (0.70-1.30); GLOMERULAR FILTRATION RATE 57.1 (>49); GLUCOSE, FASTING 144 MG/DL (74-106); MB/CK RELATIVE INDEX 7.71 (< OR =4); POTASSIUM SERUM 4.5 MMOL/L (3.5-5.1); SODIUM LEVEL 136 MMOL/L (136-145); TOTAL PROTEIN 7.6 G/DL (5.7-8.2)
[2022-09-21] MEDS ORDERED: FLON27.5 NARES (07:45)
[2022-09-21 07:58] VITALS: BP 135/67
== END 2022-09-21 08:35 | disposition home or self-care (01) ==
LOC: M ED 00:14
DX: R09.81 Nasal congestion (principal); J33.9 Nasal polyp, unspecified; R94.4 Abnormal results of kidney function studies; D64.9 Anemia, unspecified; I48.91 Unspecified atrial fibrillation; E11.9 Type 2 diabetes mellitus without complications; I10 Essential (primary) hypertension; E78.5 Hyperlipidemia, unspecified; G25.0 Essential tremor; R01.1 Cardiac murmur, unspecified; K21.9 Gastro-esophageal reflux disease without esophagitis; Z86.718 Personal history of other venous thrombosis and embolism; H40.9 Unspecified glaucoma; G43.909 Migraine, unspecified, not intractable, without status migrainosus; N18.9 Chronic kidney disease, unspecified; Z79.899 Other long term (current) drug therapy; Z79.84 Long term (current) use of oral hypoglycemic drugs

== ENCOUNTER → 2023-01-20 | Outpatient (CLI) | payer MEDICARE, OTHER ==
[~2023-01-20] MED LIST changes: +FLON27.5 NARES
== END ==
LOC: M RAD 09:22
PROVIDERS: ATTEND Physician Assistant
DX: L97.922 Non-pressure chronic ulcer of unspecified part of left lower leg with fat layer exposed (principal); R93.6 Abnormal findings on diagnostic imaging of limbs

== ENCOUNTER → 2023-03-09 | Outpatient (REF) | payer MEDICARE, OTHER | LOC: M LAB REF 16:57 | PROVIDERS: ATTEND Internal Medicine Nephrology | DX: R82.81 Pyuria (principal) ==

== ENCOUNTER → 2023-05-07 | Outpatient (REF) | payer MEDICARE, OTHER | LOC: M LABWUC 13:06 | PROVIDERS: ATTEND Family Medicine | DX: E11.21 Type 2 diabetes mellitus with diabetic nephropathy (principal) ==

== ENCOUNTER → 2023-07-12 | Outpatient (CLI) | payer MEDICARE, OTHER ==
[2023-07-12 10:34] LABS: CALCIUM LEVEL 9.5 MG/DL (8.3-10.6); CREATININE FOR GFR 1.35 MG/DL (0.70-1.30); POTASSIUM SERUM 4.6 MMOL/L (3.5-5.1)
== END ==
LOC: M WUC 08:23
PROVIDERS: ATTEND Internal Medicine Cardiovascular Disease
DX: I10 Essential (primary) hypertension (principal)

== ENCOUNTER → 2024-02-14 | Outpatient (REF) | payer MEDICARE, OTHER ==
[~2024-02-14] MED LIST changes: +CHLO125TA PO; +FLUTISP; +LISI20TA33 PO; -ROSU40TA4 PO; +ROSU40TA81 PO; +XALA0.007
== END ==
LOC: M SFHCPLAZ 16:09
PROVIDERS: ATTEND Family Medicine
DX: E11.22 Type 2 diabetes mellitus with diabetic chronic kidney disease (principal); I48.0 Paroxysmal atrial fibrillation

== ENCOUNTER → 2024-02-14 | Outpatient (CLI) | payer MEDICARE, OTHER ==
[2024-02-14 19:10] LABS: BASO # 0.1 10^3/uL (0.0-0.2); BASO % 0.7 % (0.0-1.0); EOS # 0.1 10^3/uL (0.0-0.5); EOS % 1.2 % (0.0-3.0); HEMATOCRIT 38.5 % (42.0-52.0); HEMOGLOBIN 12.4 g/dl (13.5-17.5); LYMPH # 3.5 10^3/uL (1.5-5.0); LYMPH % 42.3 % (24.0-44.0); MEAN CORPUSCULAR HEMOGLOBIN 30.5 pg (27.0-33.0); MEAN CORPUSCULAR HGB CONC 32.2 g/dl (32.0-36.5); MEAN CORPUSCULAR VOLUME 94.8 fl (80.0-96.0); MONO # 0.8 10^3/uL (0.0-0.8); MONO % 10.2 % (2.0-8.0); NEUTROPHILS # 3.8 10^3/uL (1.5-8.5); NEUTROPHILS % 45.4 % (36.0-66.0); PLATELET COUNT, AUTOMATED 251 10^3/uL (150-450); RED BLOOD COUNT 4.06 10^6/uL (4.30-6.10); WHITE BLOOD COUNT 8.3 10^3/uL (4.0-10.0)
[2024-02-14 19:30] LABS: HEMOGLOBIN A1c 6.6 % (4.0-6.0)
[2024-02-14 20:24] LABS: ALBUMIN 3.9 G/DL (3.2-5.2); BILIRUBIN,TOTAL 0.3 MG/DL (0.3-1.2); CALCIUM LEVEL 10.1 MG/DL (8.3-10.6); CREATININE FOR GFR 1.71 MG/DL (0.70-1.30); GLOMERULAR FILTRATION RATE 42.6 (>49); POTASSIUM SERUM 5.1 MMOL/L (3.5-5.1); TOTAL PROTEIN 8.2 G/DL (5.7-8.2)
[2024-02-14 20:26] LABS: FERRITIN 81.6 NG/ML (10.5-307.3)
== END ==
LOC: M PLALAB 16:17
PROVIDERS: ATTEND Family Medicine
DX: E11.22 Type 2 diabetes mellitus with diabetic chronic kidney disease (principal); I48.0 Paroxysmal atrial fibrillation

== ENCOUNTER 2024-02-16 08:30 | Day surgery (SDC) | payer MEDICARE, OTHER ==
[~2024-02-16] VITALS: Ht 188 cm; Wt 107.4 kg
[~2024-02-16 08:30] MED LIST changes: +PHENYLEPHRINE 10% OPHTH SOL 5ML OD PRN; +fentaNYL 100 MCG/2 ML INJECTION As Ordered ONE
[2024-02-16] MEDS: OFLOXACIN 0.3 % (OCUFLOX) OPTH SOL 5ML OD ONE (09:06)
[2024-02-16] MEDS: PHENYLEPHRINE 2.5% OPHTH SOL 2ML OD SCH (09:06)
[2024-02-16] MEDS: ATROPINE SULFATE 1% OPHTH SOLN 2ML BTL OD SCH (09:06)
[2024-02-16] MEDS: LIDOCAINE 3.5 % 1ML OPHTH TOPICAL GEL OU ONE (09:06)
[2024-02-16] MEDS: TROPICAMIDE 1% OPHTH SOLN 15ML OD SCH (09:07)
[2024-02-16] MEDS: LIDOCAINE 1% SDV 5ML VIAL As Ordered ONE (09:52)
[2024-02-16] MEDS: BSS IRRIG/VANCO(10MG)/TOBRA(5MG)/EPINEPH(1:1000-0.5CC)500ML BAG-ORONLY As Ordered ONE (09:52)
[2024-02-16] MEDS: CEFUROXIME 1MG/0.1ML INTRACAMERAL INJ As Ordered ONE (09:52)
[2024-02-16] MEDS: CARBACHOL 0.01% OPHTH SOLN 1.5ML VIAL As Ordered ONE (10:04)
[2024-02-16 10:12] VITALS: BP 118/67; TEMP 97.3; O2SAT 96
[2024-02-16] MEDS ORDERED: ACETAMINOPHEN 325 MG TAB PO PRN (10:50)
[2024-02-16] MEDS: acetaZOLAMIDE 500MG ER CAP PO ONE (11:00)
== END 2024-02-16 11:02 | disposition home or self-care (01) ==
LOC: M SDC 08:30
PROVIDERS: ATTEND Ophthalmology
DX: H25.11 Age-related nuclear cataract, right eye (principal); H40.1111 Primary open-angle glaucoma, right eye, mild stage; E11.9 Type 2 diabetes mellitus without complications; I48.91 Unspecified atrial fibrillation; Z79.899 Other long term (current) drug therapy
CPT/HCPCS: 66991; 92015; C1783; J0697; J3010; V2788

== ENCOUNTER → 2024-03-07 | Outpatient (CLI) | payer MEDICARE, OTHER ==
[~2024-03-07] MED LIST changes: -PHENYLEPHRINE 10% OPHTH SOL 5ML OD PRN; -fentaNYL 100 MCG/2 ML INJECTION As Ordered ONE
[2024-03-07 12:25] LABS: CHOLESTEROL RISK RATIO 2.5 (<5); HDL CHOLESTEROL 42.7 MG/DL (>40); LDL CHOLESTEROL 49.5 MG/DL (<100); NON-HDL-C 64.3 MG/DL
[2024-03-07 12:28] LABS: HEMOGLOBIN A1c 6.8 % (4.0-6.0)
[2024-03-07 12:30] LABS: TOTAL 25(OH) VITAMIN D 29.9 NG/ML (20.0-100.0)
[2024-03-07 16:21] LABS: CREATININE, URINE 151.2 MG/DL; MAU/CREAT RATIO 22.4 MCG/MG (0.0-30.0)
== END ==
LOC: M WUC 09:04
PROVIDERS: ATTEND Family Medicine
DX: E11.22 Type 2 diabetes mellitus with diabetic chronic kidney disease (principal); N18.2 Chronic kidney disease, stage 2 (mild); E55.9 Vitamin D deficiency, unspecified; E78.00 Pure hypercholesterolemia, unspecified

== ENCOUNTER 2024-04-30 15:11 | Emergency (ER) | payer OTHER, MEDICARE ==
[~2024-04-30] VITALS: Ht 188 cm; Wt 106.6 kg
[2024-04-30] MEDS: ACETAMINOPHEN 500 MG TAB PO ONE (16:01)
[2024-04-30 18:49] VITALS: BP 110/63; TEMP 97.8; O2SAT 97
== END 2024-04-30 19:01 | disposition home or self-care (01) ==
LOC: M ED 15:11
DX: S00.83XA Contusion of other part of head, initial encounter (principal); Y92.9 Unspecified place or not applicable; Y93.9 Activity, unspecified; Y99.0 Civilian activity done for income or pay; Y04.2XXA Assault by strike against or bumped into by another person, initial encounter; E11.9 Type 2 diabetes mellitus without complications; E78.5 Hyperlipidemia, unspecified; I12.9 Hypertensive chronic kidney disease with stage 1 through stage 4 chronic kidney disease, or unspecified chronic kidney disease; G47.33 Obstructive sleep apnea (adult) (pediatric); Z79.1 Long term (current) use of non-steroidal anti-inflammatories (NSAID); Z79.4 Long term (current) use of insulin; Z79.84 Long term (current) use of oral hypoglycemic drugs; Z79.01 Long term (current) use of anticoagulants; Z79.899 Other long term (current) drug therapy

== ENCOUNTER 2024-05-08 14:57 | Emergency (ER) | payer OTHER, MEDICARE ==
[~2024-05-08] VITALS: Ht 188 cm; Wt 104.3 kg
[2024-05-08] MEDS ORDERED: ISOVUE-370 76% 100ML VIAL As Ordered ONE (15:12)
[2024-05-08 15:27] LABS: BASO # 0.1 10^3/uL (0.0-0.2); BASO % 0.5 % (0.0-1.0); EOS # 0.1 10^3/uL (0.0-0.5); EOS % 0.8 % (0.0-3.0); HEMATOCRIT 37.3 % (42.0-52.0); LYMPH # 3.9 10^3/uL (1.5-5.0); LYMPH % 40.1 % (24.0-44.0); MEAN CORPUSCULAR HEMOGLOBIN 29.7 pg (27.0-33.0); MEAN CORPUSCULAR HGB CONC 32.2 g/dl (32.0-36.5); MEAN CORPUSCULAR VOLUME 92.3 fl (80.0-96.0); MONO # 0.8 10^3/uL (0.0-0.8); MONO % 8.7 % (2.0-8.0); NEUTROPHILS # 4.8 10^3/uL (1.5-8.5); NEUTROPHILS % 49.7 % (36.0-66.0); PLATELET COUNT, AUTOMATED 282 10^3/uL (150-450); RED BLOOD COUNT 4.04 10^6/uL (4.30-6.10); WHITE BLOOD COUNT 9.6 10^3/uL (4.0-10.0)
[2024-05-08 15:39] LABS: INR 1.6; PARTIAL THROMBOPLASTIN TIME 25.7 SECONDS (24.8-34.2); PROTHROMBIN TIME 19.2 SECONDS (12.5-14.5)
[2024-05-08 15:54] LABS: CALCIUM LEVEL 9.8 MG/DL (8.3-10.6); CREATININE FOR GFR 1.3 MG/DL (0.70-1.30); GLOMERULAR FILTRATION RATE 58.3 (>49)
[2024-05-08] MEDS ORDERED: ONDA-282 PO (16:01)
[2024-05-08 16:15] VITALS: BP 119/62; TEMP 97.9; O2SAT 96
== END 2024-05-08 16:23 | disposition home or self-care (01) ==
LOC: M ED 14:57
DX: F07.81 Postconcussional syndrome (principal); I48.91 Unspecified atrial fibrillation; E11.9 Type 2 diabetes mellitus without complications; I10 Essential (primary) hypertension; E78.5 Hyperlipidemia, unspecified; K21.9 Gastro-esophageal reflux disease without esophagitis; Z79.1 Long term (current) use of non-steroidal anti-inflammatories (NSAID); Z79.84 Long term (current) use of oral hypoglycemic drugs; Z79.01 Long term (current) use of anticoagulants; Z79.899 Other long term (current) drug therapy

== ENCOUNTER → 2024-07-20 | Outpatient (CLI) | payer MEDICARE, OTHER ==
[~2024-07-20] MED LIST changes: -FLUTISP; +FLUTISP PO; +ONDA-282 PO; -XALA0.007; +XALA0.007 OU
[2024-07-20 14:28] LABS: ALBUMIN 3.6 G/DL (3.2-5.2); BILIRUBIN,TOTAL 0.3 MG/DL (0.3-1.2); CALCIUM LEVEL 9.4 MG/DL (8.3-10.6); CHOLESTEROL RISK RATIO 2.38 (<5); CREATININE FOR GFR 1.28 MG/DL (0.70-1.30); GLOMERULAR FILTRATION RATE 59.3 (>49); HDL CHOLESTEROL 50.4 MG/DL (>40); LDL CHOLESTEROL 47.2 MG/DL (<100); NON-HDL-C 69.6 MG/DL; POTASSIUM SERUM 4.5 MMOL/L (3.5-5.1); PSA SCREENING 0.93 NG/ML (< 4.00); TOTAL PROTEIN 7.8 G/DL (5.7-8.2)
[2024-07-20 14:43] LABS: BASO % 0.5 % (0.0-1.0); EOS # 0.1 10^3/uL (0.0-0.5); EOS % 1.3 % (0.0-3.0); HEMATOCRIT 38.1 % (42.0-52.0); HEMOGLOBIN 12.3 g/dl (13.5-17.5); LYMPH # 3.2 10^3/uL (1.5-5.0); LYMPH % 42.1 % (24.0-44.0); MEAN CORPUSCULAR HEMOGLOBIN 30.2 pg (27.0-33.0); MEAN CORPUSCULAR HGB CONC 32.3 g/dl (32.0-36.5); MEAN CORPUSCULAR VOLUME 93.6 fl (80.0-96.0); MONO # 0.8 10^3/uL (0.0-0.8); MONO % 10.6 % (2.0-8.0); NEUTROPHILS # 3.5 10^3/uL (1.5-8.5); NEUTROPHILS % 45.2 % (36.0-66.0); PLATELET COUNT, AUTOMATED 207 10^3/uL (150-450); RED BLOOD COUNT 4.07 10^6/uL (4.30-6.10); WHITE BLOOD COUNT 7.6 10^3/uL (4.0-10.0)
[2024-07-20 14:45] LABS: CREATININE, URINE 44.7 MG/DL; MAU/CREAT RATIO 13.4 MCG/MG (0.0-30.0)
== END ==
LOC: M PLALAB 10:10
PROVIDERS: ATTEND Student in an Organized Health Care Education/Training Program
DX: Z12.5 Encounter for screening for malignant neoplasm of prostate (principal); E78.00 Pure hypercholesterolemia, unspecified
CPT/HCPCS: 36415; 80053; 80061; 82043; 82652; 85025; G0103

== ENCOUNTER → 2024-07-28 | Outpatient (CLI) | payer OTHER, MEDICARE ==
[2024-07-28 16:41] LABS: THYROID STIMULATING HORMONE 1.975 uIU/ML (0.55-4.78)
[2024-07-28 16:42] LABS: LUTEINIZING HORMONE 11.6 mIU/ML (1.5-9.3)
[2024-07-28 16:43] LABS: FOLLICLE STIMULATING HORMONE 33.5 mIU/ML (1.4-18.1); FREE T4 1.21 NG/DL (0.89-1.76)
[2024-07-28 16:45] LABS: CORTISOL AM 15.8 UG/DL (4.3-22.4)
== END ==
LOC: M WUC 08:33
PROVIDERS: ATTEND Physician Assistant
DX: S06.0X1A Concussion with loss of consciousness of 30 minutes or less, initial encounter (principal); G44.329 Chronic post-traumatic headache, not intractable; R26.89 Other abnormalities of gait and mobility; R45.86 Emotional lability; F43.10 Post-traumatic stress disorder, unspecified; R53.83 Other fatigue; Y93.9 Activity, unspecified; Y92.9 Unspecified place or not applicable

== ENCOUNTER 2024-08-02 07:48 | Day surgery (SDC) | payer MEDICARE, OTHER ==
[~2024-08-02] VITALS: Ht 188 cm; Wt 107.0 kg
[~2024-08-02 07:48] MED LIST changes: +CYCLOPENTOLATE 1% OPHTH SOLN 2ML BTL OS SCH; +LIDOCAINE 3.5 % 1ML OPHTH TOPICAL GEL OU ONE; +OFLOXACIN 0.3 % (OCUFLOX) OPTH SOL 5ML OS ONE; +PHENYLEPHRINE 10% OPHTH SOL 5ML OS PRN; +PHENYLEPHRINE 2.5% OPHTH SOL 2ML OS SCH; +TROPICAMIDE 1% OPHTH SOLN 15ML OS SCH
[2024-08-02] MEDS ORDERED: MIDAZOLAM INJ 2MG/2ML VIAL As Ordered ONE (09:25)
[2024-08-02] MEDS ORDERED: fentaNYL 100 MCG/2 ML INJECTION As Ordered ONE (09:26)
[2024-08-02] MEDS ORDERED: POVIDONE-IODINE 5% OPHTH PREP SOL 30ML As Ordered ONE (09:53)
[2024-08-02] MEDS ORDERED: ePHEDrine SULFATE 25 MG/5 ML(5MG/ML) SYRINGE As Ordered ONE (10:07)
[2024-08-02] MEDS ORDERED: DUOVISC (0.50ML VISCOAT/0.85ML PROVISC) OPHTH KIT As Ordered ONE (10:11)
[2024-08-02] MEDS: LIDOCAINE 1% SDV 5ML VIAL As Ordered ONE (10:13)
[2024-08-02] MEDS: CEFUROXIME 1MG/0.1ML INTRACAMERAL INJ As Ordered ONE (10:14)
[2024-08-02] MEDS: BSS IRRIG/VANCO(10MG)/TOBRA(5MG)/EPINEPH(1:1000-0.5CC)500ML BAG-ORONLY As Ordered ONE (10:14)
[2024-08-02 10:25] VITALS: BP 110/56; TEMP 98; O2SAT 97
== END 2024-08-02 10:44 | disposition home or self-care (01) ==
LOC: M SDC 07:48
PROVIDERS: ATTEND Ophthalmology
DX: H40.1121 Primary open-angle glaucoma, left eye, mild stage (principal); E11.36 Type 2 diabetes mellitus with diabetic cataract; H25.12 Age-related nuclear cataract, left eye; I48.91 Unspecified atrial fibrillation; I10 Essential (primary) hypertension; E78.00 Pure hypercholesterolemia, unspecified; G47.30 Sleep apnea, unspecified; N28.9 Disorder of kidney and ureter, unspecified; Z79.899 Other long term (current) drug therapy; Z79.01 Long term (current) use of anticoagulants; Z79.85 Long-term (current) use of injectable non-insulin antidiabetic drugs; Z79.84 Long term (current) use of oral hypoglycemic drugs; Z91.040 Latex allergy status; Z86.718 Personal history of other venous thrombosis and embolism
CPT/HCPCS: 66991; C1783; J0697; J2250; J3010; V2788